=== PATIENT | female | born 1940 | race Caucasian/White ===

== ENCOUNTER 2016-07-09 19:00 | Emergency (ER) | payer OTHER, MEDICAID ==
[~2016-07-09] VITALS: Ht 165.1 cm; Wt 95.3 kg
[2016-07-09 19:02] VITALS: BP 157/82; PULSE 112; RESP 20; TEMP 97.8; O2SAT 98
--- NOTE | 2016-07-09 19:11 | NUR ---
Pt placed to ER bed 06, to gown, to r&d engineer, report given to FLORENCIA Bunch.
--- NOTE | 2016-07-09 19:14 | NUR ---
ER MD Newman at bedside for evaluation
[2016-07-09] MEDS ORDERED: MAG HYDROX/AL HYDROX/SIMETH 30 ML, BELLADONNA ALKALOIDS/PHENOBARB 10 ML, LIDOCAINE VISC... PO ONE ×3 (19:15)
--- NOTE | 2016-07-09 19:15 | NUR ---
Patient to ER C/O chest pressure and pain 5/10 non-radiating, substernal for 2 days, worse today. Patient states that she has history of GERD & aortic aneurysm. Patient also C/O continuous burping and mild indigestion. AAOx4, unlabored breathing, tachycardic, no acute distress.
--- NOTE | 2016-07-09 19:35 | NUR ---
# 20 gauge angiocath placed to LEFT AC. Use of asceptic technique. Opsite placed over site. Blood return noted. Blood for lab drawn from site. Flushed with 10 cc of normal saline. No evidence of infiltration noted. Patient tolerated well.
[2016-07-09 19:54] LABS: BASOPHILS # (AUTO) 0.1 K/uL (0.0-0.2); BASOPHILS % (AUTO) 1.1 % (0.0-2.0); EOSINOPHILS # (AUTO) 0.3 K/uL (0.0-0.4); EOSINOPHILS % (AUTO) 3.5 % (0.0-4.0); HEMATOCRIT 35.1 % (36-48); HEMOGLOBIN 11.5 g/dL (12.0-16.0); LYMPHOCYTES # (AUTO) 1.2 K/uL (1.0-5.5); LYMPHOCYTES % (AUTO) 14.2 % (20.5-51.5); MEAN CORPUSCULAR HEMOGLOBIN 28 pg (27-31); MEAN CORPUSCULAR HGB CONC 33 % (32-36); MEAN CORPUSCULAR VOLUME 87 fL (79.0-98.0); MONOCYTES # (AUTO) 0.6 K/uL (0.0-1.0); NEUTROPHILS # (AUTO) 6.3 K/uL (1.8-7.7); NEUTROPHILS % (AUTO) 74.2 % (40.0-70.0); PLATELET COUNT (AUTO) 256 K/uL (130-430); RED BLOOD CELL COUNT(AUTO) 4.05 MIL/uL (4.2-6.2); RED CELL DISTRIBUTION WIDTH 14.3 % (9.0-15.0); WHITE BLOOD COUNT (AUTO) 8.5 K/uL (4.8-10.8)
--- NOTE | 2016-07-09 19:57 | NUR ---
Note undone in EDM - 07/09/16 at 1959 by ALEISHA Patient to ER C/O chest pressure and pain 5/10 non-radiating, substernal for 2 days, worse today. Patient states that she has history of GERD & aortic aneurysm. Patient also C/O continuous burping and mild indigestion. AAOx4, unlabored breathing, tachycardic, no acute distress.
[2016-07-09 20:10] LABS: ANION GAP 4 (5-15); CALCIUM 9.2 mg/dL (8.4-11.0); CHLORIDE 105 mmol/L (98-107); CREATININE 2.02 mg/dL (0.55-1.30); GLUCOSE 322 mg/dL (70-99); POTASSIUM 4.5 mmol/L (3.5-5.1); SODIUM SERUM 134 mmol/L (136-145); UREA NITROGEN, BLOOD 48 mg/dL (8-21)
[2016-07-09 20:15] LABS: ALANINE AMINOTRANSFERASE 26 U/L (12-78); ALBUMIN 3.6 g/dL (3.4-4.8); ASPARTATE AMINOTRANSFERASE 18 U/L (10-37); TOTAL BILIRUBIN 0.2 mg/dL (0.0-1.0); TOTAL PROTEIN, SERUM 7.8 g/dL (6.4-8.3)
[2016-07-09 20:31] LABS: BILIRUBIN,URINE NEGATIVE (NEGATIVE); BLOOD, URINE NEGATIVE (NEGATIVE); CLARITY/URINE SL HAZY (CLEAR); COLOR,URINE YELLOW (YELLOW); GLUCOSE,URINE 3+ (NEGATIVE); KETONES,URINE NEGATIVE (NEGATIVE); LEUKOCYTE ESTERASE ,URINE 2+ (NEGATIVE); NITRITE, URINE POSITIVE (NEGATIVE); PROTEIN URINE TRACE (NEGATIVE); UROBILINOGEN,URINE 0.2 (0.2-1.0)
[2016-07-09 20:48] VITALS: BP 132/78; PULSE 78; RESP 19; TEMP 98.1; O2SAT 97
--- NOTE | 2016-07-09 20:48 | NUR ---
Patient given written and verbal discharge instructions and verbalizes understanding. MARLENE Hong discussed with patient the results and treatment provided. Patient in stable condition. ID arm band removed. IV catheter removed intact and dressing applied, no active bleeding. Rx of keflex given. Patient educated on pain management and to follow up with PMD. Pain Scale 0/10. Opportunity for questions provided and answered.
[2016-07-09 20:56] LABS: BACTERIA,URINE MANY /HPF (None Seen); RBC,URINE 0-3 /HPF (0-3)
--- NOTE | 2016-07-11 13:13 | NUR ---
Final C & S report reviewed indified organism is suseptible to Keflex as previously prescribed pre Dr. sams.
== END 2016-07-09 20:48 | disposition home or self-care (01) ==
LOC: SED 19:00
DX: K21.9 Gastro-esophageal reflux disease without esophagitis (principal); N39.0 Urinary tract infection, site not specified; I10 Essential (primary) hypertension; E11.9 Type 2 diabetes mellitus without complications; J44.9 Chronic obstructive pulmonary disease, unspecified; Z87.891 Personal history of nicotine dependence
CPT/HCPCS: 36415; 71010; 80053; 81000; 83880; 84484; 85025; 87086; 87186; 93005; 99285; J2001

== ENCOUNTER 2020-11-10 18:00 | Emergency (ER) | payer OTHER, MEDICAID, SELFPAY ==
[~2020-11-10] VITALS: Ht 165.1 cm; Wt 68.0 kg
[2020-11-10 18:00] VITALS: BP_SYST 108
--- NOTE | 2020-11-10 18:00 | NUR ---
BROUGHT IN BY [facility], PLACED IN BED #5 AND TRIAGED. REPORT GIVEN TO ANA.
--- NOTE | 2020-11-10 18:10 | NUR ---
PT BIBA FROM HOME C/O HEART PALIPATIONS. PT STATES SHE HAS A HX OF A-FIB BUT IS A POOR HISTORIAN. STATES SHE HAS HAD FEELINGS OF HEART PALIPITATIONS FOR MONTHS HOWEVER SUDDENLY FELT WORSE AND WANTED TO CALL 911. PT ARRIVES AAOX3, V/S STABLE, PLEASANT. ARRIVES WITH #20 IV TO LAC
[2020-11-10] MEDS ORDERED: APIX2.5T PO (18:15)
[2020-11-10] MEDS ORDERED: FURO-150 PO (18:15)
[2020-11-10] MEDS ORDERED: DILT120C52 PO (18:15)
[2020-11-10] MEDS ORDERED: LORA2TAB95 PO (18:15)
[2020-11-10] MEDS ORDERED: METO25TA3 PO (18:15)
--- NOTE | 2020-11-10 18:15 | NUR ---
Medication reconciliation completed with information provided by pt's partner. Any prior medication reconciliation on file was reviewed and corrected.
--- NOTE | 2020-11-10 18:34 | NUR ---
ER DR. POWELL AT THE BEDSIDE EXAMINING PT
--- NOTE | 2020-11-10 18:50 | NUR ---
PT AMBULATES TO RESTROOM WITH ASSIST
--- NOTE | 2020-11-10 19:05 | NUR ---
REPORT GIVEN TO FLORENCIA PHILIP FOR CONTINUING CARE
[2020-11-10] MEDS ORDERED: INSULIN REGULAR, HUMAN 10 UNITS/0.1 ML INJ IVP ONE ×3 (20:00→21:15)
[2020-11-10 20:20] LABS: BASOPHILS # (AUTO) 0.1 K/uL (0.0-0.2); BASOPHILS % (AUTO) 0.7 % (0.0-2.0); EOSINOPHILS # (AUTO) 0.1 K/uL (0.0-0.4); HEMATOCRIT 38.7 % (36-48); HEMOGLOBIN 12.9 g/dL (12.0-16.0); LYMPHOCYTES # (AUTO) 1.4 K/uL (1.0-5.5); LYMPHOCYTES % (AUTO) 18.6 % (20.5-51.5); MEAN CORPUSCULAR HEMOGLOBIN 30 pg (27-31); MEAN CORPUSCULAR HGB CONC 33 % (32-36); MEAN CORPUSCULAR VOLUME 92 fL (79.0-98.0); MONOCYTES # (AUTO) 0.5 K/uL (0.0-1.0); MONOCYTES % (AUTO) 7.3 % (1.7-9.3); NEUTROPHILS # (AUTO) 5.3 K/uL (1.8-7.7); NEUTROPHILS % (AUTO) 71.4 % (40.0-70.0); PLATELET COUNT (AUTO) 185 K/uL (130-430); RED BLOOD CELL COUNT(AUTO) 4.23 MIL/uL (4.2-6.2); RED CELL DISTRIBUTION WIDTH 14.3 % (9.0-15.0); WHITE BLOOD COUNT (AUTO) 7.4 K/uL (4.8-10.8)
--- NOTE | 2020-11-10 20:21 | NUR ---
435 bg after 10 units of insulin. will recheck
[2020-11-10 20:38] LABS: ANION GAP 11 (5-15); CALCIUM 9.1 mg/dL (8.4-11.0); CHLORIDE 98 mmol/L (98-107); CREATININE 1.84 mg/dL (0.55-1.30); POTASSIUM 4.1 mmol/L (3.5-5.1); SODIUM SERUM 135 mmol/L (136-145); UREA NITROGEN, BLOOD 57 mg/dL (8-21)
[2020-11-10 20:44] LABS: ALANINE AMINOTRANSFERASE 27 U/L (12-78); ALBUMIN 3.5 g/dL (3.4-4.8); ASPARTATE AMINOTRANSFERASE 18 U/L (10-37); TOTAL BILIRUBIN 0.4 mg/dL (0.0-1.0)
[2020-11-10 20:53] LABS: GLUCOSE 454 mg/dL (70-99)
[2020-11-10 20:58] LABS: INR 0.9 (0.8-1.2); PROTHROMBIN TIME 10.1 SECS (9.5-12.5)
--- NOTE | 2020-11-10 21:11 | NUR ---
410 bg after insulin administration
--- NOTE | 2020-11-10 22:24 | NUR ---
BG 293
[2020-11-10 22:48] LABS: BILIRUBIN,URINE NEGATIVE (NEGATIVE); BLOOD, URINE NEGATIVE (NEGATIVE); CLARITY/URINE CLEAR (CLEAR); COLOR,URINE YELLOW (YELLOW); GLUCOSE,URINE 3+ (NEGATIVE); KETONES,URINE NEGATIVE (NEGATIVE); LEUKOCYTE ESTERASE ,URINE TRACE (NEGATIVE); NITRITE, URINE POSITIVE (NEGATIVE); PROTEIN URINE 2+ (NEGATIVE)
[2020-11-10 23:06] LABS: BACTERIA,URINE MODERATE /HPF (None Seen); RBC,URINE 0-3 /HPF (0-3)
[2020-11-10 23:19] VITALS: BP_SYST 108
== END 2020-11-10 23:21 | disposition home or self-care (01) ==
LOC: SED 18:00
DX: I48.0 Paroxysmal atrial fibrillation (principal); E11.65 Type 2 diabetes mellitus with hyperglycemia; I10 Essential (primary) hypertension; I48.91 Unspecified atrial fibrillation; J44.9 Chronic obstructive pulmonary disease, unspecified; Z79.899 Other long term (current) drug therapy; Z20.822 Contact with and (suspected) exposure to COVID-19
CPT/HCPCS: 36415; 71045; 80053; 81000; 82962; 83880; 84484; 85025; 85610; 85730; 87086; 87426; 93005; 99285; J1815

== ENCOUNTER 2021-09-05 13:24 | Inpatient (IN) | payer OTHER, MEDICAID ==
[~2021-09-05] VITALS: Ht 167.6 cm; Wt 61.0 kg
[~2021-09-05 13:24] MED LIST: APIX2.5T PO; DILT120C52 PO; FURO-150 PO; LORA2TAB95 PO; METO25TA3 PO
[2021-09-05 13:26] VITALS: BP_SYST 142
[2021-09-05] MEDS ORDERED: methylPREDNISolone SOD SUCC/PF 62.5 MG/ML VIAL IVP ONE (13:45)
[2021-09-05] MEDS ORDERED: IPRATROPIUM/ALBUTEROL SULFATE 3 ML AMPUL.NEB (DUONEB) INH ONE (13:45)
[2021-09-05] MEDS ORDERED: ALBUTEROL SULFATE 0.083% 2.5 MG/3 ML VIAL.NEB INH ONE (13:45)
[2021-09-05] MEDS ORDERED: AZITHROMYCIN 500 MG in NS 250 ML IV ONE (14:00)
[2021-09-05] MEDS ORDERED: cefTRIAXone 1 GM IVPB PREMIX 50 ML IV ONE (14:00)
[2021-09-05 14:37] LABS: BASOPHILS # (AUTO) 0.1 K/uL (0.0-0.2); BASOPHILS % (AUTO) 0.8 % (0.0-2.0); EOSINOPHILS # (AUTO) 0.1 K/uL (0.0-0.4); EOSINOPHILS % (AUTO) 1.7 % (0.0-4.0); HEMATOCRIT 30.6 % (36-48); HEMOGLOBIN 10.5 g/dL (12.0-16.0); LYMPHOCYTES # (AUTO) 1.2 K/uL (1.0-5.5); LYMPHOCYTES % (AUTO) 16.5 % (20.5-51.5); MEAN CORPUSCULAR HEMOGLOBIN 30 pg (27-31); MEAN CORPUSCULAR HGB CONC 34 % (32-36); MEAN CORPUSCULAR VOLUME 88 fL (79.0-98.0); MONOCYTES # (AUTO) 0.5 K/uL (0.0-1.0); MONOCYTES % (AUTO) 6.4 % (1.7-9.3); NEUTROPHILS # (AUTO) 5.6 K/uL (1.8-7.7); NEUTROPHILS % (AUTO) 74.6 % (40.0-70.0); PLATELET COUNT (AUTO) 168 K/uL (130-430); RED BLOOD CELL COUNT(AUTO) 3.47 MIL/uL (4.2-6.2); WHITE BLOOD COUNT (AUTO) 7.5 K/uL (4.8-10.8)
[2021-09-05] MEDS ORDERED: LORazepam 2 MG/ML VIAL ONE (15:06)
[2021-09-05] MEDS ORDERED: LORazepam 2 MG/ML VIAL IVP ONE (15:15)
[2021-09-05 15:16] LABS: ANION GAP 3 (5-15); CALCIUM 8.7 mg/dL (8.4-11.0); CHLORIDE 108 mmol/L (98-107); CREATININE 1.44 mg/dL (0.55-1.30); GLUCOSE 296 mg/dL (70-99); POTASSIUM 4.3 mmol/L (3.5-5.1); SODIUM SERUM 138 mmol/L (136-145); UREA NITROGEN, BLOOD 42 mg/dL (8-21)
[2021-09-05 15:29] LABS: ALANINE AMINOTRANSFERASE 15 U/L (12-78); ALBUMIN 2.8 g/dL (3.4-4.8); ASPARTATE AMINOTRANSFERASE 20 U/L (10-37); TOTAL BILIRUBIN 0.4 mg/dL (0.0-1.0)
[2021-09-05 16:11] VITALS: BP_SYST 142
[2021-09-05] MEDS ORDERED: ACETAMINOPHEN 325 MG TABLET PO PRN (16:15)
[2021-09-05] MEDS ORDERED: MUPIROCIN 2% TOPICAL OINTMENT 22 GM NS PRN (16:15)
[2021-09-05] MEDS ORDERED: DOCUSATE SODIUM 100 MG CAPSULE PO PRN (16:15)
[2021-09-05] MEDS ORDERED: MORPHINE 2 MG/ML INJ. SYRINGE IVP PRN ×2 (16:15)
[2021-09-05] MEDS: NACL 0.9% 1,000 ML IV SCH (16:15)
[2021-09-05] MEDS ORDERED: POTASSIUM CHLORIDE 20 MEQ TAB.PRT.SR PO PRN (16:15)
[2021-09-05] MEDS ORDERED: NALOXONE HCL 0.4 MG/ML AMP (NARCAN) IVP PRN ×2 (16:15)
[2021-09-05] MEDS ORDERED: DEXTROSE 50% JECT 50 ML DISP.SYRIN IVP PRN (16:15)
[2021-09-05] MEDS ORDERED: ZOLPIDEM TARTRATE 5 MG TABLET PO PRN (16:15)
[2021-09-05] MEDS ORDERED: ONDANSETRON HCL 4 MG/2 ML VIAL IVP PRN (16:15)
[2021-09-05] MEDS ORDERED: IPRATROPIUM/ALBUTEROL SULFATE 3 ML AMPUL.NEB (DUONEB) INH PRN (16:15)
[2021-09-05] MEDS ORDERED: MAGNESIUM SULFATE 50 ML IV PRN (16:15)
[2021-09-05] MEDS ORDERED: LORazepam 1 MG TABLET ONE (17:37)
[2021-09-05] MEDS ORDERED: LORazepam 1 MG TABLET PO ONE (17:45)
[2021-09-05] MEDS ORDERED: AZITHROMYCIN 500 MG/VIAL (ZITHROMAX) IV ONE (18:42)
[2021-09-05] MEDS ORDERED: HEPARIN SODIUM,PORCINE 5,000 UNITS/ML VIAL SUBCUT SCH (21:00)
[2021-09-05] MEDS: LORazepam 2 MG/ML VIAL IVP PRN (21:31)
[2021-09-05] MEDS: METHYLPREDNISOLONE SOD SUCC 40 MG/ML VIAL IVP SCH (21:35)
[2021-09-05 21:36] VITALS: BP_SYST 160
[2021-09-05] MEDS: FUROSEMIDE 20 MG TABLET PO SCH (21:36)
[2021-09-05] MEDS: INSULIN LISPRO SLIDING SCALE 100 UNITS/ML VIAL (humaLOG) SUBCUT PRN (22:05)
[2021-09-06] MEDS: NACL 0.9% 1,000 ML IV SCH (06:00)
[2021-09-06] MEDS: INSULIN LISPRO SLIDING SCALE 100 UNITS/ML VIAL (humaLOG) SUBCUT PRN ×2 (06:01→12:51)
[2021-09-06 08:00] VITALS: BP_SYST 121
[2021-09-06 08:32] LABS: ANION GAP 4 (5-15); CHLORIDE 108 mmol/L (98-107); CREATININE 1.42 mg/dL (0.55-1.30); GLUCOSE 211 mg/dL (70-99); SODIUM SERUM 136 mmol/L (136-145); UREA NITROGEN, BLOOD 45 mg/dL (8-21)
[2021-09-06] MEDS: METHYLPREDNISOLONE SOD SUCC 40 MG/ML VIAL IVP SCH (08:50)
[2021-09-06] MEDS ORDERED: DILTIAZEM HCL 120 MG CAP.SR.24H PO SCH (09:00)
[2021-09-06] MEDS ORDERED: APIXABAN 2.5 MG TABLET PO SCH (09:00)
[2021-09-06] MEDS ORDERED: METOPROLOL SUCCINATE 25 MG TAB.SR.24H (TOPROL XL) PO SCH ×2 (09:00)
[2021-09-06] MEDS: FUROSEMIDE 20 MG TABLET PO SCH (09:31)
[2021-09-06] MEDS: LORazepam 2 MG/ML VIAL IVP PRN (10:50)
[2021-09-06 11:56] VITALS: BP_SYST 153
[2021-09-06 14:27] VITALS: BP_SYST 153
[2021-09-06] MEDS ORDERED: PRED10TA PO (15:06)
== END 2021-09-06 15:57 | disposition home or self-care (01) | DRG 189 ==
LOC: SED 13:24 → STU 15:40
PROVIDERS: ADMIT General Practice; ATTEND General Practice
DX: J96.21 Acute and chronic respiratory failure with hypoxia (principal); N17.0 Acute kidney failure with tubular necrosis; J44.1 Chronic obstructive pulmonary disease with (acute) exacerbation; E44.0 Moderate protein-calorie malnutrition; I48.91 Unspecified atrial fibrillation; D63.8 Anemia in other chronic diseases classified elsewhere; E11.65 Type 2 diabetes mellitus with hyperglycemia; J40 Bronchitis, not specified as acute or chronic; Z20.822 Contact with and (suspected) exposure to COVID-19; I10 Essential (primary) hypertension; Z87.891 Personal history of nicotine dependence; Z68.21 Body mass index [BMI] 21.0-21.9, adult; Z79.899 Other long term (current) drug therapy
CPT/HCPCS: 36415; 71045; 80048; 80053; 82803-TC; 82962; 83605; 85025; 87040; 93005; 94640; 94760; 96365; 96375; 99291; G0378; J0456; J0696; J1030; J2060; J2930; J7050; J7613